=== PATIENT | female | born 1990 | race American Indian/Alaskan Native ===

== ENCOUNTER 2017-06-20 19:24 | Emergency (ER) | payer OTHER ==
[2017-06-20 20:27] LABS: Bilirubin,Urine NEG (Negative); Blood,Urine NEG (Negative); Ketones,Urine NEG (Negative); Leukocyte Esterase,Urine NEG (Negative); Mucus,Urine FEW /HPF; Nitrite,Urine NEG (Negative); Protein,Urine <15 mg/dL mg/dL (Negative); Urobilinogen,Urine < 2.0 mg/dL (<2.0); WBC,Urine < 1.0 /HPF (0.0-6.0)
[2017-06-20 20:34] LABS: Basophils % (Auto) 0.8 % (0.0-1.8); Eosinophils % (Auto) 2.7 % (0.0-4.3); Hematocrit 39.8 % (30.3-42.9); Hemoglobin 12.9 gm/dl (10.1-14.3); Mean Corpuscular HGB Conc 32 % (30-34); Mean Corpuscular Hemoglobin 26 pg (28-32); Mean Corpuscular Volume 82 fl (79-97); Platelet Count 219 K/mm3 (140-440); Red Blood Count 4.88 M/mm3 (3.65-5.03); Red Cell Distribution Width 14.8 % (13.2-15.2); White Blood Count 11.1 K/mm3 (4.5-11.0)
[2017-06-20 20:35] LABS: Anion Gap 18 mmol/L; BUN/Creatinine Ratio 11; Blood Urea Nitrogen 8 mg/dL (7-17); Carbon Dioxide 25 mmol/L (22-30); Chloride 100.2 mmol/L (98-107); Glucose 91 mg/dL (65-100); Potassium 4.3 mmol/L (3.6-5.0); Sodium 139 mmol/L (137-145)
[2017-06-20] MEDS ORDERED: TORADOL IM ONE (21:59)
--- NOTE | 2017-06-20 22:04 | Emergency Department Report ---
- General Chief complaint: Skin/Abscess/Foreign Body Stated complaint: BUMP ON BACK Time Seen by Provider: 06/20/17 21:54 Source: patient Mode of arrival: Ambulatory Limitations: No Limitations - History of Present Illness Initial comments: Patient is 27 years old female history of hypertension presented to the ER with chief complaint of lower back abscess for the last 3 days. Patient denied any fever nausea or vomiting. No other symptoms. MD complaint: abscess/boil -: days(s) Tetanus Up to Date: yes Location: back Severity scale (0 -10): 7 Quality: stabbing - Related Data Home Medications Medication Instructions Recorded Confirmed Last Taken Labetalol [Normodyne] 100 mg PO BID 06/16/14 06/16/14 06/15/14 09:00 1 Pnv95/Ferrous Fumarate/FA 1 tab PO DAILY 06/16/14 06/16/14 06/15/14 21:00 [ Vitamins] 1 Allergies Allergy/AdvReac Type Severity Reaction Status Date / Time No Known Allergies Allergy Verified 06/16/14 12:45 Abscess Boil HPI - HPI Chief Complaint: Skin/Abscess/Foreign Body Stated Complaint: BUMP ON BACK Time Seen by Provider: 06/20/17 21:54 Home Medications: Home Medications Medication Instructions Recorded Confirmed Last Taken Labetalol [Normodyne] 100 mg PO BID 06/16/14 06/16/14 06/15/14 09:00 1 Pnv95/Ferrous Fumarate/FA 1 tab PO DAILY 06/16/14 06/16/14 06/15/14 21:00 [ Vitamins] 1 Allergies/Adverse Reactions: Allergies Allergy/AdvReac Type Severity Reaction Status Date / Time No Known Allergies Allergy Verified 06/16/14 12:45 ED Review of Systems ROS: Stated complaint: BUMP ON BACK Other details as noted in HPI Comment: All other systems reviewed and negative Constitutional: denies: chills, fever Respiratory: denies: cough, shortness of breath Cardiovascular: denies: chest pain, palpitations Gastrointestinal: denies: abdominal pain, nausea, vomiting, diarrhea, constipation, hematemesis, melena, hematochezia Skin: lesions ED Past Medical Hx - Past Medical History Previous Medical History?: Yes Hx Hypertension: Yes Hx Congestive Heart Failure: No Hx Diabetes: No Hx Deep Vein Thrombosis: No Hx Renal Disease: No Hx Sickle Cell Disease: No Hx Seizures: No Hx Asthma: No Hx COPD: No Hx HIV: No - Surgical History Past Surgical History?: Yes Additional Surgical History: Breast reduction, leg sx for HS - Social History Smoking Status: Current Every Day Smoker Substance Use Type: Alcohol - Medications Home Medications: Home Medications Medication Instructions Recorded Confirmed Last Taken Type Labetalol [Normodyne] 100 mg PO BID 06/16/14 06/16/14 06/15/14 09:00 History 1 Pnv95/Ferrous Fumarate/FA 1 tab PO DAILY 06/16/14 06/16/14 06/15/14 21:00 History [ Vitamins] 1 ED Physical Exam - General Limitations: No Limitations General appearance: alert, in no apparent distress - Head Head exam: Present: atraumatic, normocephalic, normal inspection - ENT ENT exam: Present: normal exam - Neck Neck exam: Present: normal inspection, full ROM. Absent: tenderness, meningismus, lymphadenopathy - Respiratory Respiratory exam: Present: normal lung sounds bilaterally - Cardiovascular Cardiovascular Exam: Present: regular rate, normal rhythm, normal heart sounds - GI/Abdominal GI/Abdominal exam: Present: soft, normal bowel sounds. Absent: distended, tenderness, guarding, rebound, rigid, mass, bruit, pulsatile mass - Extremities Exam Extremities exam: Present: normal inspection, tenderness - Back Exam Back exam: Present: full ROM, other (2 cm x 2 cm swelling, non fluctuant,tender) - Neurological Exam Neurological exam: Present: alert, oriented X3, CN II-XII intact, normal gait - Skin Skin exam: Present: warm, intact, rash ED Course Vital Signs 06/20/17 06/20/17 19:31 21:49 Temperature 98.1 F Pulse Rate 93 H Respiratory 18 Rate Blood Pressure 183/113 O2 Sat by Pulse 100 99 Oximetry ED Medical Decision Making - Lab Data Result diagrams: 06/20/17 20:08 06/20/17 20:08 Critical care attestation.: If time is entered above; I have spent that time in minutes in the direct care of this critically ill patient, excluding procedure time. ED Disposition Clinical Impression: Abscess Disposition: DC-01 TO HOME OR SELFCARE Is pt being admited?: No Condition: Stable Instructions: Abscess (ED) Referrals: PRIMARY CARE, [Primary Care Provider] - 3-5 Days
[2017-06-20 22:19] VITALS: BP 155/100
== END 2017-06-20 22:24 | disposition home or self-care (01) ==
LOC: ED 19:24
DX: L02.212 Cutaneous abscess of back [any part, except buttock and flank] (principal); I10 Essential (primary) hypertension; F17.200 Nicotine dependence, unspecified, uncomplicated
CPT/HCPCS: 36415; 80048; 81001; 81025; 85025; 93005; 93010; 96372; 99283; J1885

== ENCOUNTER → 2017-09-28 21:07 | Emergency (ER) | payer SELFPAY | END | disposition left against medical advice (07) | LOC: ED 21:07 | DX: M79.89 Other specified soft tissue disorders (principal); Z53.21 Procedure and treatment not carried out due to patient leaving prior to being seen by health care provider ==

== ENCOUNTER 2017-09-29 15:42 | Emergency (ER) | payer OTHER ==
[2017-09-29 15:51] VITALS: BP 148/93
[2017-09-29 16:11] LABS: Bilirubin,Urine NEG (Negative); Blood,Urine NEG (Negative); Color,Urine Yellow (Yellow); Protein,Urine <15 mg/dL mg/dL (Negative); Urobilinogen,Urine < 2.0 mg/dL (<2.0)
[2017-09-29 16:12] LABS: HCG Qualitative,Urine Negative (Negative)
--- NOTE | 2017-09-29 18:09 | Emergency Department Report ---
ED General Adult HPI - General Chief complaint: Skin/Abscess/Foreign Body Stated complaint: KNOT ON RIGHT LEG Time Seen by Provider: 09/29/17 18:03 Source: patient Mode of arrival: Ambulatory Limitations: No Limitations - History of Present Illness Initial comments: Patient is a 27-year-old female past medical history of hydradenitis. A presents with by lateral leg pain has been going on for the last four days. Patient states that she normally gets seen by her canvas cutter for hydradenitis however she has not been able to schedule appointment with her. Patient's pain is a 5 out 10 nothing makes it better and nothing makes it worse. She is here for a medication refill for her clindamycin and her Keflex as well as a Flagyl gel. - Related Data Home Medications Medication Instructions Recorded Confirmed Last Taken Labetalol [Normodyne] 100 mg PO BID 06/16/14 06/16/14 06/15/14 09:00 1 Pnv95/Ferrous Fumarate/FA 1 tab PO DAILY 06/16/14 06/16/14 06/15/14 21:00 [ Vitamins] 1 Previous Rx's Medication Instructions Recorded Last Taken Type HYDROcodone/APAP 5-325 [[place] 1 each PO Q6HR PRN #14 tablet 06/20/17 Unknown Rx 5/325] Ondansetron [Zofran Odt] 4 mg PO Q8HR PRN #14 tab.rapdis 06/20/17 Unknown Rx Cephalexin [Keflex] 500 mg PO Q12HR #20 cap 09/29/17 Unknown Rx Clindamycin [Clindamycin CAP] 300 mg PO Q8H #30 cap 09/29/17 Unknown Rx Fluconazole [Diflucan TAB] 150 mg PO ONCE #1 tablet 09/29/17 Unknown Rx metroNIDAZOLE [metroNIDAZOLE GEL] 55 gm TP BID #1 gel.w.pump 09/29/17 Unknown Rx traMADol [Ultram 50 MG tab] 50 mg PO Q6HR PRN #20 tablet 09/29/17 Unknown Rx Allergies Allergy/AdvReac Type Severity Reaction Status Date / Time Sulfa (Sulfonamide Allergy Swelling Verified 09/29/17 15:52 Antibiotics) ED Review of Systems ROS: Stated complaint: KNOT ON RIGHT LEG Other details as noted in HPI Constitutional: denies: chills, fever Eyes: denies: eye pain, eye discharge, vision change ENT: denies: ear pain, throat pain Respiratory: denies: cough, shortness of breath, wheezing Cardiovascular: denies: chest pain, palpitations Endocrine: no symptoms reported Gastrointestinal: denies: abdominal pain, nausea, diarrhea Genitourinary: denies: urgency, dysuria, discharge Musculoskeletal: denies: back pain, joint swelling, arthralgia Skin: denies: rash, lesions Neurological: denies: headache, weakness, paresthesias Psychiatric: denies: anxiety, depression Hematological/Lymphatic: denies: easy bleeding, easy bruising ED Past Medical Hx - Past Medical History Previous Medical History?: Yes Hx Hypertension: Yes Hx Congestive Heart Failure: No Hx Diabetes: No Hx Deep Vein Thrombosis: No Hx Renal Disease: No Hx Sickle Cell Disease: No Hx Seizures: No Hx Asthma: No Hx COPD: No Hx HIV: No Additional medical history: bacterial vaginosis - Surgical History Past Surgical History?: Yes Additional Surgical History: Breast reduction, leg sx for HS - Social History Smoking Status: Current Every Day Smoker Substance Use Type: Alcohol - Medications Home Medications: Home Medications Medication Instructions Recorded Confirmed Last Taken Type Labetalol [Normodyne] 100 mg PO BID 06/16/14 06/16/14 06/15/14 09:00 History 1 Pnv95/Ferrous Fumarate/FA 1 tab PO DAILY 06/16/14 06/16/14 06/15/14 21:00 History [ Vitamins] 1 HYDROcodone/APAP 5-325 [[place] 1 each PO Q6HR PRN #14 tablet 06/20/17 Unknown Rx 5/325] Ondansetron [Zofran Odt] 4 mg PO Q8HR PRN #14 tab.rapdis 06/20/17 Unknown Rx Cephalexin [Keflex] 500 mg PO Q12HR #20 cap 09/29/17 Unknown Rx Clindamycin [Clindamycin CAP] 300 mg PO Q8H #30 cap 09/29/17 Unknown Rx Fluconazole [Diflucan TAB] 150 mg PO ONCE #1 tablet 09/29/17 Unknown Rx metroNIDAZOLE [metroNIDAZOLE GEL] 55 gm TP BID #1 gel.w.pump 09/29/17 Unknown Rx traMADol [Ultram 50 MG tab] 50 mg PO Q6HR PRN #20 tablet 09/29/17 Unknown Rx ED Physical Exam - General Limitations: No Limitations General appearance: alert, in no apparent distress - Head Head exam: Present: atraumatic, normocephalic - Eye Eye exam: Present: normal appearance - ENT ENT exam: Present: mucous membranes moist - Neck Neck exam: Present: normal inspection - Respiratory Respiratory exam: Present: normal lung sounds bilaterally. Absent: respiratory distress - Cardiovascular Cardiovascular Exam: Present: regular rate, normal rhythm. Absent: systolic murmur, diastolic murmur, rubs, gallop - GI/Abdominal GI/Abdominal exam: Present: soft, normal bowel sounds - Extremities Exam Extremities exam: Present: normal inspection - Back Exam Back exam: Present: normal inspection - Neurological Exam Neurological exam: Present: alert, oriented X3 - Psychiatric Psychiatric exam: Present: normal affect, normal mood - Skin Skin exam: Present: warm, dry, other (hydranatis ). Absent: rash ED Course Vital Signs 09/29/17 15:47 Temperature 98.7 F Pulse Rate 92 H Respiratory 20 Rate Blood Pressure 148/93 O2 Sat by Pulse 99 Oximetry ED Medical Decision Making - Medical Decision Making Chief medical diagnosis: Hidrantis supprativa Differential diagnosis: Cellulitis, atopic dermatitis I will give pt rx that she usually takes for her Hidranatis supprativa. Discussed plan with patient patient agrees with pland additional verbal discharge instructions were given. Critical care attestation.: If time is entered above; I have spent that time in minutes in the direct care of this critically ill patient, excluding procedure time. ED Disposition Clinical Impression: Hidradenitis suppurativa, Bilateral leg pain Disposition: DC-01 TO HOME OR SELFCARE Is pt being admited?: No Does the pt Need Aspirin: No Condition: Stable Instructions: Cellulitis (ED) Prescriptions: Cephalexin [Keflex] 500 mg PO Q12HR #20 cap Clindamycin [Clindamycin CAP] 300 mg PO Q8H #30 cap Fluconazole [Diflucan TAB] 150 mg PO ONCE #1 tablet metroNIDAZOLE [metroNIDAZOLE GEL] 55 gm TP BID #1 gel.w.pump traMADol [Ultram 50 MG tab] 50 mg PO Q6HR PRN #20 tablet PRN Reason: Pain Referrals: CELI TIDWELL MD [Staff Physician] - 3-5 Days MALCOLM RIVERA MD [Staff Physician] - 3-5 Days
== END 2017-09-29 19:07 | disposition home or self-care (01) ==
LOC: ED 15:42
DX: L73.2 Hidradenitis suppurativa (principal); I10 Essential (primary) hypertension; F17.200 Nicotine dependence, unspecified, uncomplicated; Z88.2 Allergy status to sulfonamides
CPT/HCPCS: 81001; 81025; 99283